=== PATIENT | male | born 1995 | race Caucasian/White ===

== ENCOUNTER 2017-01-21 02:29 | Emergency (ER) | payer OTHER ==
[~2017-01-21] VITALS: Ht 165.1 cm; Wt 72.4 kg
[2017-01-21 02:38] VITALS: TEMP 36.8; O2SAT 99; Ht 165.1 cm; Wt 72.4 kg
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
[2017-01-21 03:01] VITALS: BP 148/72; PULSE 88; O2SAT 98
== END 2017-01-21 03:16 | disposition home or self-care (01) ==
LOC: EDBD 02:29 → C.EDB 02:30
DX: F10.920 Alcohol use, unspecified with intoxication, uncomplicated (principal)

== ENCOUNTER 2017-07-15 14:41 | Emergency (ER) | payer OTHER ==
[~2017-07-15] VITALS: Ht 170.2 cm; Wt 68.8 kg
[2017-07-15 14:42] VITALS: BP 131/74; TEMP 36.7; Ht 170.2 cm; Wt 68.8 kg
[2017-07-15 15:55] VITALS: PULSE 98; O2SAT 98
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
== END 2017-07-15 15:58 | disposition home or self-care (01) ==
LOC: C.EDB 14:43 → C.EDD 15:58
DX: H53.8 Other visual disturbances (principal); H11.32 Conjunctival hemorrhage, left eye; S01.112D Laceration without foreign body of left eyelid and periocular area, subsequent encounter; Y04.8XXD Assault by other bodily force, subsequent encounter

== ENCOUNTER 2017-07-17 17:36 | Emergency (ER) | payer SELFPAY ==
[~2017-07-17] VITALS: Ht 172.7 cm; Wt 66.2 kg
[2017-07-17 17:46] VITALS: TEMP 36.5; Ht 172.7 cm; Wt 66.2 kg
[2017-07-17 19:03] VITALS: BP 121/80; PULSE 85; O2SAT 98
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
== END 2017-07-17 19:00 | disposition home or self-care (01) ==
LOC: C.EDB 17:37 → C.EDD 19:00
DX: S01.112D Laceration without foreign body of left eyelid and periocular area, subsequent encounter (principal); H11.32 Conjunctival hemorrhage, left eye; S02.2XXD Fracture of nasal bones, subsequent encounter for fracture with routine healing; Y04.0XXD Assault by unarmed brawl or fight, subsequent encounter